=== PATIENT | male | born 1940 | race Caucasian/White ===

== ENCOUNTER 2016-10-05 15:31 | Emergency (ER) | payer OTHER ==
[~2016-10-05] VITALS: Ht 170.2 cm; Wt 59.0 kg
[~2016-10-05 15:31] MED LIST: ASPI-496 PO; ASPI-621 PO; ATEN25TA PO; ATOR40TA78 PO; LISI-167 PO; LISI-170 PO; LISI2.5T PO; METO25TA35 PO; METO25TA91 PO; TICA90TA PO
[2016-10-05 16:27] LABS: BLOOD UREA NITROGEN 22 mg/dL (7-18)
[2016-10-05 16:54] VITALS: BP 140/58
== END 2016-10-05 17:38 | disposition home or self-care (01) ==
LOC: ED 17:37
DX: L04.1 Acute lymphadenitis of trunk (principal); B02.9 Zoster without complications; I11.9 Hypertensive heart disease without heart failure
CPT/HCPCS: 36415; 80048; 81003; 82040; 85025; 99284